=== PATIENT | female | born 1985 | race Caucasian/White ===

== ENCOUNTER 2019-01-10 20:05 | Emergency (ER) | payer SELFPAY ==
--- NOTE | 2019-01-10 21:02 | ER Document Report ---
ED Medical Screen (RME) - General Chief Complaint: Probable Seizure Stated Complaint: SYNCOPAL EPISODE Time Seen by Provider: 01/10/19 21:01 Notes: 33-year-old female to emergency department chief complaint of altered mental status. Patient states that she has these "spells". Has some sort of heart disease. Has an implanted device that supposed to record events but she has not seen a replenishment specialist in several years. No fever, chills, sweats. Complaining of neck and back pain. She does not know what happened. I have greeted and performed a rapid initial assessment of this patient. A comprehensive ED assessment and evaluation of the patient, analysis of test results and completion of the medical decision making process will be conducted by additional ED providers. TRAVEL OUTSIDE OF THE [place] IN LAST 30 DAYS: No - Related Data Allergies/Adverse Reactions: No Known Drug Allergies Allergy (Verified 01/10/19 20:29) Past Medical History - Social History Frequency of alcohol use: Rare Drug Abuse: None Renal/ Medical History: Denies: Hx Peritoneal Dialysis Physical Exam - Vital signs Vitals: Resp 17 01/10/19 20:07 Course - Vital Signs Vital signs: Temp Pulse Resp BP Pulse Ox 98.9 F 23 H 125/74 99 01/10/19 20:08 01/10/19 20:08 01/10/19 20:08 01/10/19 20:08
[2019-01-10 21:25] LABS: APPEARANCE,URINE SLIGHTLY-CLOUDY; BILIRUBIN,URINE NEGATIVE (NEGATIVE); COLOR,URINE YELLOW; GLUCOSE, URINE NEGATIVE (NEGATIVE); KETONES,URINE NEGATIVE (NEGATIVE); LEUKOCYTE ESTERASE,URINE MODERATE (NEGATIVE); NITRITE,URINE POSITIVE (NEGATIVE); PROTEIN,URINE NEGATIVE (NEGATIVE); URINE SPECIFIC GRAVITY 1.004; UROBILINOGEN,URINE NEGATIVE mg/dL (<2.0)
[2019-01-10 21:26] LABS: ABSOLUTE BASOPHILS # (AUTO) 0.1 10^3/uL (0.0-0.2); ABSOLUTE EOSINOPHILS # (AUTO) 0.2 10^3/uL (0.0-0.6); ABSOLUTE LYMPHOCYTES (AUTO) 3.8 10^3/uL (0.5-4.7); ABSOLUTE MONOCYTES (AUTO) 0.5 10^3/uL (0.1-1.4); ABSOLUTE NEUT (AUTO) 5.7 10^3/uL (1.7-8.2); BASOPHILS % (AUTO) 0.8 % (0-2); EOSINOPHILS % (AUTO) 2.4 % (0-6); HEMATOCRIT 37.5 % (36.0-47.0); HEMOGLOBIN 12.9 g/dL (12.0-15.5); LYMPHOCYTES % (AUTO) 36.5 % (13-45); MEAN CORPUSCULAR HEMOGLOBIN 31.4 pg (27.0-33.4); MEAN CORPUSCULAR HGB CONC 34.5 g/dL (32.0-36.0); MEAN CORPUSCULAR VOLUME 91 fl (80-97); MONOCYTES % (AUTO) 5.2 % (3-13); PLATELET COUNT 316 10^3/uL (150-450); RED BLOOD COUNT 4.11 10^6/uL (3.72-5.28); RED CELL DISTRIBUTION WIDTH 14.4 % (11.5-14.0); SEGMENTED NEUTROPHILS % (AUTO) 55.1 % (42-78); TOTAL CELLS COUNTED % (AUTO) 100 %; WHITE BLOOD COUNT 10.3 10^3/uL (4.0-10.5)
[2019-01-10 21:38] LABS: URINE AMPHETAMINES SCREEN NEGATIVE; URINE BARBITURATES SCREEN NEGATIVE; URINE BENZODIAZEPINES SCREEN NEGATIVE; URINE COCAINE SCREEN NEGATIVE; URINE MARIJUANA (THC) SCREEN UNCONFIRMED POSITIVE; URINE METHADONE SCREEN NEGATIVE; URINE PHENCYCLIDINE SCREEN NEGATIVE
[2019-01-10 21:52] LABS: ALANINE AMINOTRANSFERASE 18 U/L (9-52); ALBUMIN 4.2 g/dL (3.5-5.0); ALKALINE PHOSPHATASE 73 U/L (38-126); ANION GAP 12 (5-19); ASPARTATE AMINO TRANSFERASE 13 U/L (14-36); BILIRUBIN,DIRECT 0.3 mg/dL (0.0-0.4); BILIRUBIN,TOTAL 0.5 mg/dL (0.2-1.3); BLOOD UREA NITROGEN 10 mg/dL (7-20); CALCIUM 9.5 mg/dL (8.4-10.2); CARBON DIOXIDE 22 mmol/L (22-30); CHLORIDE 105 mmol/L (98-107); CREATINE KINASE 67 U/L (30-135); GLUCOSE 85 mg/dL (75-110); SODIUM 139.4 mmol/L (137-145); TOTAL PROTEIN 6.7 g/dL (6.3-8.2)
[2019-01-10 22:04] LABS: CREATINE KINASE MB 0.29 ng/mL (<4.55); TROPONIN I < 0.012 ng/mL
[2019-01-10] MEDS ORDERED: ACETAMINOPHEN 325 MG TABLET PO ONE (23:56)
--- NOTE | 2019-01-11 04:01 | RADIOLOGY REPORT (SQ) ---
CLINICAL HISTORY: seizure, anisocoria COMPARISON: None. TECHNIQUE: CT HEAD WITHOUT IV CONTRAST on 01/11/2019 2:07 AM CDT This exam was performed according to our departmental dose-optimization program, which includes automated exposure control, adjustment of the mA and/or kV according to patient size and/or use of iterative reconstruction technique. FINDINGS: There is no acute hemorrhage, mass effect or midline shift. Reid-white differentiation is preserved. There is no hydrocephalus. There is no significant volume loss for age. The calvarium is intact. Orbits and globes are unremarkable. The paranasal sinuses are clear. Mastoid air cells are clear. IMPRESSION: No acute intracranial findings.
[2019-01-11] MEDS ORDERED: LEVETIRACETAM 500 MG TABLET PO ONE (05:26)
[2019-01-11] MEDS ORDERED: CEPHALEXIN 500 MG CAPSULE PO ONE (05:26)
--- NOTE | 2019-01-11 06:03 | ER Document Report ---
ED General - General Chief Complaint: Probable Seizure Stated Complaint: SYNCOPAL EPISODE Time Seen by Provider: 01/10/19 21:01 TRAVEL OUTSIDE OF THE [place] IN LAST 30 DAYS: No - HPI Notes: Patient brought to the emergency department for evaluation of possible seizure. Evidently this is not first time this is happened. She has a history of these episodes. Patient's brother describes opisthotnus. She does have a postictal period afterwards. He does not report biting her tongue. No incontinence. She has had these episodes multiple times. She does not drive. She was told at one point they might be cardiac but she is unsure. She is not seeing neurology. She does not currently have insurance. At this time she denies any pain. No visual changes. Seeing, speaking, swallowing without difficulty. Moving arms and legs with no problems. - Related Data Allergies/Adverse Reactions: No Known Drug Allergies Allergy (Verified 01/10/19 20:29) Past Medical History - General Information source: Patient, Relative - Social History Smoking Status: Current Every Day Smoker Frequency of alcohol use: Rare Drug Abuse: None Family History: Reviewed & Not Pertinent Patient has suicidal ideation: No Patient has homicidal ideation: No Neurological Medical History: Reports: Hx Seizures Renal/ Medical History: Denies: Hx Peritoneal Dialysis Review of Systems - Review of Systems Constitutional: No symptoms reported EENT: No symptoms reported Cardiovascular: No symptoms reported Respiratory: No symptoms reported Gastrointestinal: No symptoms reported Genitourinary: No symptoms reported Musculoskeletal: No symptoms reported Skin: No symptoms reported Neurological/Psychological: No symptoms reported Physical Exam - Vital signs Vitals: Resp 17 01/10/19 20:07 - Notes Notes: Vital signs reviewed, please refer to chart. Patient is normocephalic, atraumatic. Right pupil is 6 mm round, reactive. Left pupil is 4 mm, round, reactive. Neck is supple without meningismus. Heart is regular rate and rhythm. Lungs are clear to auscultation bilaterally. Abdomen is soft, nontender, normoactive bowel sounds throughout. Extremities without cyanosis, clubbing, edema. Peripheral pulses are equal. Skin is warm and dry. Patient is awake, alert, and oriented x3. With the exception of anisocoria, cranial nerves II through XII are grossly intact without focal neurological deficits. Strength is plus 5 out of 5 bilateral upper and lower extremities. Reflexes are symmetrical, sensation is intact. Intact [id number], rapid alternating movements, heel to vargas. Course - Re-evaluation Re-evalutation: 01/11/19 06:01 Patient presented to the emergency department for evaluation. She was initially evaluated via triage and had laboratory investigations ordered. On my initial exam, I did note that anisocoria. The patient denies that this is ever been present. It was not noted on earlier exams. CT scan of the head was ordered and found to be unremarkable. I then consulted with Dr. Borrego, neurologist at [facility]. I reiterated with him that there is no ptosis, no diplopia, no other acute complaints. CT scan was unremarkable. Patient's ptosis remained, but she remained asymptomatic with it. He does recommend treatment with Keppra. Again the patient does not drive. I explained to her the importance of continuing not to drive. I will start her on Keppra. I will refer her on to [facility]. Given her medical issues it is highly important she have a primary care provider, she voiced understanding to this. She was given a dose of Keflex for UTI, found with a nitrate positive urine. Otherwise she is stable and ready for discharge. She is to return to the ED with worsening or new concerning symptoms of any sort. 01/11/19 06:05 - Vital Signs Vital signs: Temp Pulse Resp BP Pulse Ox 98.7 F 78 20 120/70 98 01/11/19 06:22 01/11/19 06:22 01/11/19 06:22 01/11/19 06:22 01/11/19 06:22 - Laboratory Result Diagrams: 01/10/19 20:22 01/10/19 20:22 Laboratory results interpreted by me: 01/10/19 01/10/19 01/10/19 20:22 20:22 21:10 RDW 14.4 H AST 13 L Urine Nitrite POSITIVE H Ur Leukocyte Esterase MODERATE H - EKG Interpretation by Me Additional EKG results interpreted by me: 01/11/19 06:13 NSR at 84 bpm. Normal axis and intervals, no acute ST changes concerning for ischemia or infarct. Discharge - Discharge Clinical Impression: UTI (urinary tract infection), Seizure, Anisocoria Condition: Stable Disposition: HOME, SELF-CARE Instructions: Cephalexin ([facility]), New Seizure ([facility]), Urinary Tract Infection ([facility]) Additional Instructions: Take Keppra and Keflex as directed. It is highly important you follow-up with primary care. Absolutely no driving. Return to the emergency department with worsening or new concerning symptoms of any sort. Prescriptions: Cephalexin Monohydrate [Keflex 500 mg Capsule] 500 mg PO QID #20 capsule Levetiracetam [Keppra 500 mg Tablet] 500 mg PO Q12 #60 tablet
[2019-01-11 06:23] VITALS: BP 120/70
--- NOTE | 2019-01-11 08:06 | EKG REPORT ---
SEVERITY:- NORMAL ECG - SINUS RHYTHM : Confirmed by: Kobe Tobar MD 11-Jan-2019 08:05:17
== END 2019-01-11 06:25 | disposition home or self-care (01) ==
LOC: ER 20:05
DX: R56.9 Unspecified convulsions (principal); H57.02 Anisocoria; N39.0 Urinary tract infection, site not specified; F17.200 Nicotine dependence, unspecified, uncomplicated
CPT/HCPCS: 36415; 70450; 80053; 80307; 81001; 81025; 82550; 82553; 84484; 85025; 93005; 93010; 99284

== ENCOUNTER 2019-02-15 17:38 | Emergency (ER) | payer SELFPAY ==
[2019-02-15] MEDS ORDERED: LEVETIRACETAM 1000 MG/NACL-ISO 1,000 MG/100 ML RTUPB IV ONE (17:53)
--- NOTE | 2019-02-15 17:54 | ER Document Report ---
ED General - General Stated Complaint: POSSIBLE SEZIURE Time Seen by Provider: 02/15/19 17:52 Primary Care Provider: IZABELLA BERNAL MD [EMERITUS] - Follow up in 3-5 days OSMAN HUTSON MD [NO LOCAL MD] - Follow up in 3-5 days Notes: Patient is a 33 year old female that presents to the emergency department for chief complaint of seizure. Patient has history of seizure disorder, she was recently started on Keppra about 2 months ago because she was having increased number of seizures, she takes 500 mg twice daily, she claims she has not missed any doses. He does not have a neurologist yet in the area. She states this seizure occurred while she was in the car, her brother was with her, she was in the passenger seat, lasted less than 5 minutes, and stopped on its own. She is complained of a mild headache at this time, did not bite her tongue, or urinate on herself. She has a bit of a backache as well, she currently rates her pain as a 3 out of 10. She denies any other complaints at this time, denies any recent fevers, chills, night sweats, numbness, weakness or tingling in extremities. Past Medical History: Seizure disorder, paroxysmal atrial fibrillation Past Surgical History: Loop recorder placement Social History: Admits to smoking cigarettes, denies alcohol or drug use. Family History: Reviewed and noncontributory for presenting illness Allergies: Reviewed, see documented allergy list. REVIEW OF SYSTEMS: Other than noted above, the 12 point review of systems was reviewed with the patient and were negative, all pertinent findings are included in the HPI. PHYSICAL EXAMINATION: Vital signs reviewed, nursing noted reviewed. GENERAL: Well-appearing, well-nourished and in no acute distress. HEAD: Atraumatic, normocephalic. EYES: Eyes appear normal, extraocular movements intact, sclera anicteric, co njunctiva are normal. ENT: nares patent, oropharynx clear without exudates. Moist mucous membranes. NECK: Normal range of motion, supple without lymphadenopathy LUNGS: Breath sounds clear to auscultation bilaterally and equal. No wheezes rales or rhonchi. HEART: Regular rate and rhythm without murmurs ABDOMEN: Soft, nontender, normoactive bowel sounds. No rebound, guarding, or rigidity. No masses appreciated. EXTREMITIES: Nontender, good range of motion, no pitting or edema. NEUROLOGICAL: No focal neurological deficits. Moves all extremities spontaneously Motor and sensory grossly intact on exam. PSYCH: Normal mood, normal affect. SKIN: Warm, Dry, normal turgor, no rashes or lesions noted on exposed skin TRAVEL OUTSIDE OF THE [place] IN LAST 30 DAYS: No - Related Data Allergies/Adverse Reactions: No Known Drug Allergies Allergy (Verified 01/10/19 20:29) Past Medical History - Social History Smoking Status: Current Every Day Smoker Family History: Reviewed & Not Pertinent Neurological Medical History: Reports: Hx Seizures Renal/ Medical History: Denies: Hx Peritoneal Dialysis Physical Exam - Vital signs Vitals: Temp Pulse Resp BP Pulse Ox 98.3 F 81 18 103/70 99 02/15/19 18:19 02/15/19 18:19 02/15/19 18:19 02/15/19 18:19 02/15/19 18:19 Course - Re-evaluation Re-evalutation: Patient seen and examined vital signs reviewed. Patient was evaluated and treated as appropriate for the patient's presenting symptoms and complaint, with consideration of any critical or life threatening conditions that may be associated with their obtained history and exam as noted above. Patient was treated with IV Keppra 1 g The patient was re-evaluated and was stable and improved Evaluation was most consistent with seizure disorder, with breakthrough seizure, advised continuing her current dosing of Keppra, and following up with a neurologist, she is given to to follow-up with. Patient was agreeable to this plan of care and discharged home. Plan of care was discussed with the patient at this point, after careful consideration I feel that that patient can be discharged from the emergency department, the patient was educated treatments and reasons to return to the emergency department based on their presumed diagnosis as noted above, they were advised to followup with a primary care physician in 2-3 days. Patient was agreeable to plan of care. *Note is created using voice recognition software and may contain spelling, syntax or grammatical errors. - Vital Signs Vital signs: Temp Pulse Resp BP Pulse Ox 98.3 F 91 18 103/70 100 19 18:19 0419 19:37 02/15/19 19:37 02/15/19 19:37 02/15/19 19:37 - EKG Interpretation by Me Additional EKG results interpreted by me: EKG demonstrates sinus rhythm with a ventricular rate of 82 bpm, normal axis, normal intervals, no evidence of acute ischemia on this EKG, this is compared to prior EKG from 01/10/2019, without significant change. Discharge - Discharge Clinical Impression: Seizure Condition: Stable Disposition: HOME, SELF-CARE Instructions: Seizure, Known Epileptic ([facility]) Referrals: IZABELLA BERNAL MD [EMERITUS] - Follow up in 3-5 days OSMAN HUTSON MD [NO LOCAL MD] - Follow up in 3-5 days
[2019-02-15] MEDS ORDERED: KETOROLAC TROMETHAMINE INJ/PF 30 MG/1 ML SDV IV ONE (18:01)
[2019-02-15 18:21] VITALS: BP 103/70
--- NOTE | 2019-02-15 22:42 | EKG REPORT ---
SEVERITY:- NORMAL ECG - SINUS RHYTHM : Confirmed by: Jeannie Bhatia MD 15-Feb-2019 22:41:40
== END 2019-02-15 19:37 | disposition home or self-care (01) ==
LOC: ER 17:38
DX: G40.909 Epilepsy, unspecified, not intractable, without status epilepticus (principal); Z79.899 Other long term (current) drug therapy; M54.9 Dorsalgia, unspecified; F17.210 Nicotine dependence, cigarettes, uncomplicated
CPT/HCPCS: 93005; 99284; 96375; 96365; 93010; J1885; J1953

== ENCOUNTER 2019-03-10 15:40 | Emergency (ER) | payer SELFPAY ==
[2019-03-10] MEDS ORDERED: LORAZEPAM INJ 2 MG/1 ML VIAL ONE ×2 (15:50→15:58)
[2019-03-10] MEDS ORDERED: PHENYTOIN SODIUM INJ/PF 250 MG/5 ML SDV IV ONE (16:05)
[2019-03-10] MEDS ORDERED: DIAZEPAM INJ 10 MG/2 ML DISP.SYRIN IV ONE ×6 (16:06→21:08)
[2019-03-10] MEDS: DIAZEPAM INJ 10 MG/2 ML DISP.SYRIN ONE ×2 (16:08→16:31)
[2019-03-10 16:32] LABS: ABSOLUTE EOSINOPHILS # (AUTO) 0.3 10^3/uL (0.0-0.6); ABSOLUTE MONOCYTES (AUTO) 0.4 10^3/uL (0.1-1.4); ABSOLUTE NEUT (AUTO) 4.6 10^3/uL (1.7-8.2); BASOPHILS % (AUTO) 0.4 % (0-2); EOSINOPHILS % (AUTO) 3.1 % (0-6); HEMATOCRIT 41.7 % (36.0-47.0); LYMPHOCYTES % (AUTO) 42.4 % (13-45); MEAN CORPUSCULAR HEMOGLOBIN 30.8 pg (27.0-33.4); MEAN CORPUSCULAR HGB CONC 33.6 g/dL (32.0-36.0); MEAN CORPUSCULAR VOLUME 92 fl (80-97); MONOCYTES % (AUTO) 4.7 % (3-13); PLATELET COUNT 313 10^3/uL (150-450); RED BLOOD COUNT 4.55 10^6/uL (3.72-5.28); RED CELL DISTRIBUTION WIDTH 13.1 % (11.5-14.0); SEGMENTED NEUTROPHILS % (AUTO) 49.4 % (42-78); TOTAL CELLS COUNTED % (AUTO) 100 %; WHITE BLOOD COUNT 9.3 10^3/uL (4.0-10.5)
[2019-03-10 16:52] LABS: ALANINE AMINOTRANSFERASE 29 U/L (9-52); ALBUMIN 4.7 g/dL (3.5-5.0); ALKALINE PHOSPHATASE 72 U/L (38-126); ANION GAP 14 (5-19); ASPARTATE AMINO TRANSFERASE 25 U/L (14-36); BILIRUBIN,DIRECT 0.4 mg/dL (0.0-0.4); BILIRUBIN,TOTAL 0.7 mg/dL (0.2-1.3); BLOOD UREA NITROGEN 8 mg/dL (7-20); CALCIUM 9.9 mg/dL (8.4-10.2); CARBON DIOXIDE 21 mmol/L (22-30); CHLORIDE 107 mmol/L (98-107); GLUCOSE 110 mg/dL (75-110); POTASSIUM 4.3 mmol/L (3.6-5.0); TOTAL PROTEIN 7.6 g/dL (6.3-8.2)
[2019-03-10] MEDS ORDERED: DIAZEPAM INJ 10 MG/2 ML DISP.SYRIN ONE ×2 (17:59→18:08)
[2019-03-10 18:24] LABS: APPEARANCE,URINE CLEAR; BILIRUBIN,URINE NEGATIVE (NEGATIVE); COLOR,URINE YELLOW; GLUCOSE, URINE NEGATIVE (NEGATIVE); KETONES,URINE NEGATIVE (NEGATIVE); LEUKOCYTE ESTERASE,URINE NEGATIVE (NEGATIVE); NITRITE,URINE NEGATIVE (NEGATIVE); PROTEIN,URINE NEGATIVE (NEGATIVE); URINE SPECIFIC GRAVITY 1.012; UROBILINOGEN,URINE NEGATIVE mg/dL (<2.0)
[2019-03-10 18:41] LABS: URINE AMPHETAMINES SCREEN NEGATIVE; URINE BARBITURATES SCREEN NEGATIVE; URINE BENZODIAZEPINES SCREEN UNCONFIRMED POSITIVE; URINE COCAINE SCREEN NEGATIVE; URINE MARIJUANA (THC) SCREEN UNCONFIRMED POSITIVE; URINE METHADONE SCREEN NEGATIVE; URINE PHENCYCLIDINE SCREEN NEGATIVE
[2019-03-10] MEDS ORDERED: MIDAZOLAM 2 MG/2 ML INJ ONE (19:12)
[2019-03-10] MEDS ORDERED: MIDAZOLAM 2 MG/2 ML INJ IV ONE (19:16)
--- NOTE | 2019-03-10 19:48 | ER Document Report ---
ED General - General Chief Complaint: Seizure Stated Complaint: POSSIBLE SEIZURE Time Seen by Provider: 03/10/19 15:50 TRAVEL OUTSIDE OF THE [place] IN LAST 30 DAYS: No - HPI Notes: Patient is a 33-year-old female who presents to the emergency department for evaluation after possible seizure. She has never officially been diagnosed with seizure disorder. Actually saw this patient back in December. At that time she was diagnosed with possible seizure. Her brother described opisthotonic movements in a post-ictal state. I did perform an MRI at that point because she had anisocoria. No significant abnormality was found. Evidently the patient had continued the Keppra, as recommended by myself as well as a neurology consult from [facility]. According to brother she was taking her medications as prescribed. She had another episode while in the field. She was loaded with 500 mill grams of Keppra and route here. Upon arrival, she was having another opisthotonic, nonepileptic appearing event. She was medicated here with benzodiazepines. I loaded her with Dilantin, and continue to follow. According to family she is had no further head injuries. She is no history of drug abuse. - Related Data Allergies/Adverse Reactions: No Known Drug Allergies Allergy (Verified 01/10/19 20:29) Past Medical History - General Information source: Parent, Relative - Social History Smoking Status: Never Smoker Chew tobacco use (# tins/day): No Frequency of alcohol use: None Drug Abuse: Marijuana Family History: Reviewed & Not Pertinent Patient has suicidal ideation: No Patient has homicidal ideation: No - Past Medical History Cardiac Medical History: Reports: Hx Atrial Fibrillation Neurological Medical History: Reports: Hx Seizures Renal/ Medical History: Denies: Hx Peritoneal Dialysis Review of Systems - Review of Systems -: Yes ROS unobtainable due to patient's medical condition Physical Exam - Vital signs Vitals: Temp Resp Pulse Ox 98.8 F 23 H 100 03/10/19 15:56 03/10/19 15:56 03/10/19 15:56 - Notes Notes: Patient having intermittent opisthotonic episodes. Upon eye opening she does have anisocoria, stable from prior exam, right greater than left, but each pupil is reactive. She quickly averts her eyes up and to the left. Head is normocephalic and appears atraumatic. Oral mucosa is moist. Heart is regular rate and rhythm, lungs are clear to all station bilaterally. Abdomen is soft, nontender, normoactive bowel sounds. She has normoactive reflexes, moves all 4 extremities spontaneously. After these events, the patient is able to follow commands. She has been nonverbal throughout the course of her stay, but is able to communicate with blinking, once for yes, twice for no. No gross facial asymmetry. Course - Re-evaluation Re-evalutation: 03/10/19 19:46 Patient presented to the emergency department for evaluation. Is that these are in fact nonepileptic events. She was medicated multiple times. With redirectio n and calming, she was able to come out of some of these. Again she was never verbal here in the department. She is clearing her secretions without apparent difficulty. She has been maintaining her own airway despite medication. Again she had been loaded with Keppra, Keppra level pending. Laboratory investigations were unremarkable with exception of marijuana and benzodiazepines in her urine. Her urine was obtained after receiving benzodiazepines here in the emergency department. She was given Dilantin IV. I spoke with Dr. Aguilar, neurologist at [facility], who accepted the patient for continuous EEG monitoring. Bed is pending at this time. - Vital Signs Vital signs: Temp Pulse Resp BP Pulse Ox 98.8 F 23 H 101/71 100 03/10/19 15:56 03/10/19 20:01 03/10/19 20:00 03/10/19 20:01 - Laboratory Result Diagrams: 03/10/19 15:53 03/10/19 15:13 Laboratory results interpreted by me: 03/10/19 15:13 Carbon Dioxide 21 L Discharge - Discharge Clinical Impression: Seizure, suspected nonepileptic Condition: Stable Disposition: [facility] Admitting Provider: Dr. Aguilar
[2019-03-11] MEDS ORDERED: DIAZEPAM INJ 10 MG/2 ML DISP.SYRIN ONE (01:30)
[2019-03-11] MEDS ORDERED: DIAZEPAM INJ 10 MG/2 ML DISP.SYRIN IV ONE (01:32)
[2019-03-11] MEDS ORDERED: NORMAL SALINE 1000 ML 1,000 ML IV ONE (04:09)
[2019-03-11] MEDS ORDERED: NICOTINE 14 MG/24 HR PATCH.TD24 TD ONE ×2 (07:30→10:30)
--- NOTE | 2019-03-11 07:53 | ER Document Report ---
Doctor's Note Notes: 03/11/19 07:51 I was asked by nursing staff to evaluate the patient for concern of seizure activity. When I entered the room she was arched backwards I was able to and laying slightly on her left side. There was no tonic-clonic movement. When I said patient's name she turned her eyes towards me. She will not speak but is nodding her head to show understanding when I introduced myself. When nursing staff who was on the other side of the bed that her name she looked over to the other side of the bed. I do not appreciate acute seizure activity requiring immediate treatment at this point. Patient will continue to be monitored. Currently awaiting placement at outside hospital. She is hemodynamically stable at this point for transfer.
[2019-03-11 12:30] VITALS: BP 107/63
== END 2019-03-11 14:55 | disposition short-term general hospital (02) ==
LOC: ER 15:40
DX: R56.9 Unspecified convulsions (principal)
CPT/HCPCS: 36415; 80177; 82962; 84703; 85025; 80053; 81001; 80307; J2250; J3360 ×2; J2060; J1165; J7030

== ENCOUNTER 2019-05-22 07:53 | Emergency (ER) | payer OTHER ==
[2019-05-22] MEDS ORDERED: DIPH/PERTUSS(ACELL)/TETANUS VAC/PF 0.5 ML SYR (>=10YO) IM ONE (08:06)
[2019-05-22] MEDS ORDERED: LIDOCAINE 1% INJ-PF (10 MG/ML) 30 ML SDV INJ ONE (08:06)
[2019-05-22] MEDS ORDERED: LIDOCAINE 1.5%/EPINEPHRINE INJ-PF 30 ML SDV INJ ONE (08:06)
[2019-05-22] MEDS ORDERED: LIDOCAINE 4%/TETRACAINE 0.5%/EPI 0.18% 5 ML TOPICAL SOLN TOP ONE (08:07)
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
[2019-05-22] MEDS ORDERED: IBUPROFEN 600 MG TABLET PO ONE (08:42)
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
[2019-05-22] MEDS ORDERED: OXYCODONE-ACETAMINOPHEN 5-325 MG TABLET PO ONE (09:31)
[2019-05-22 10:11] VITALS: BP 122/81
== END 2019-05-22 10:11 | disposition home or self-care (01) ==
LOC: ER 07:53
DX: S02.40EA Zygomatic fracture, right side, initial encounter for closed fracture (principal); S02.31XA Fracture of orbital floor, right side, initial encounter for closed fracture; S02.40CA Maxillary fracture, right side, initial encounter for closed fracture; S01.421A Laceration with foreign body of right cheek and temporomandibular area, initial encounter; M54.2 Cervicalgia; R51 Headache; V44.6XXA Car passenger injured in collision with heavy transport vehicle or bus in traffic accident, initial encounter; Z23 Encounter for immunization
CPT/HCPCS: 99284; 90471; 70450; 70486; 72125; 90715; 12052; J3490 ×2

== ENCOUNTER 2019-10-22 12:25 | Emergency (ER) | payer OTHER ==
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
[2019-10-22 13:28] LABS: ABSOLUTE BASOPHILS # (AUTO) 0.1 10^3/uL (0.0-0.2); ABSOLUTE EOSINOPHILS # (AUTO) 0.6 10^3/uL (0.0-0.6); ABSOLUTE LYMPHOCYTES (AUTO) 2.9 10^3/uL (0.5-4.7); ABSOLUTE MONOCYTES (AUTO) 0.5 10^3/uL (0.1-1.4); ABSOLUTE NEUT (AUTO) 3.8 10^3/uL (1.7-8.2); BASOPHILS % (AUTO) 0.8 % (0-2); EOSINOPHILS % (AUTO) 7.7 % (0-6); HEMATOCRIT 41.5 % (36.0-47.0); HEMOGLOBIN 14.2 g/dL (12.0-15.5); LYMPHOCYTES % (AUTO) 36.9 % (13-45); MEAN CORPUSCULAR HEMOGLOBIN 31.1 pg (27.0-33.4); MEAN CORPUSCULAR HGB CONC 34.1 g/dL (32.0-36.0); MEAN CORPUSCULAR VOLUME 91 fl (80-97); MONOCYTES % (AUTO) 6.3 % (3-13); PLATELET COUNT 265 10^3/uL (150-450); RED BLOOD COUNT 4.56 10^6/uL (3.72-5.28); RED CELL DISTRIBUTION WIDTH 12.9 % (11.5-14.0); SEGMENTED NEUTROPHILS % (AUTO) 48.3 % (42-78); TOTAL CELLS COUNTED % (AUTO) 100 %; WHITE BLOOD COUNT 7.9 10^3/uL (4.0-10.5)
[2019-10-22 13:35] LABS: INTERNATIONAL RATION (INR) 0.91; PARTIAL THROMBOPLASTIN TIME 28.4 SEC (23.5-35.8); PROTHROMBIN TIME 12.2 SEC (11.4-15.4)
[2019-10-22 13:47] LABS: ALBUMIN 4.4 g/dL (3.5-5.0); ALKALINE PHOSPHATASE 79 U/L (38-126); ANION GAP 12 (5-19); ASPARTATE AMINO TRANSFERASE 40 U/L (14-36); BILIRUBIN,DIRECT 0.1 mg/dL (0.0-0.4); BILIRUBIN,TOTAL 0.5 mg/dL (0.2-1.3); BLOOD UREA NITROGEN 9 mg/dL (7-20); CALCIUM 9.9 mg/dL (8.4-10.2); CARBON DIOXIDE 26 mmol/L (22-30); CHLORIDE 103 mmol/L (98-107); GLUCOSE 88 mg/dL (75-110); POTASSIUM 4.2 mmol/L (3.6-5.0); TOTAL PROTEIN 7.3 g/dL (6.3-8.2)
[2019-10-22 14:19] VITALS: BP 106/73
== END 2019-10-22 14:19 | disposition home or self-care (01) ==
LOC: ER 12:25
DX: L30.9 Dermatitis, unspecified (principal); L85.8 Other specified epidermal thickening; R21 Rash and other nonspecific skin eruption; F17.200 Nicotine dependence, unspecified, uncomplicated
CPT/HCPCS: 36415; 80053; 85025; 85610; 85730; 99283

== ENCOUNTER 2019-10-28 16:14 | Emergency (ER) | payer OTHER ==
[2019-10-28] MEDS ORDERED: LORAZEPAM INJ 2 MG/1 ML VIAL IV ONE (16:37)
--- NOTE | 2019-10-28 16:42 | ER Document Report ---
ED General - General Chief Complaint: Probable Seizure Stated Complaint: POSSIBLE SEIZURES Time Seen by Provider: 10/28/19 16:36 Mode of Arrival: Medic Information source: Patient Notes: 33-year-old female patient brought to the emergency department via EMS for possible seizure-like activity. [place] and bystanders told EMS that she was having seizures. She did not have any postictal phase and did not have any incontinence. Patient was seen here in [facility] emergency department for very similar presentation a few months ago, she was subsequently transferred to [facility] where she underwent testing. Upon reviewing her pharmacy record she has not taken any medications for seizures. TRAVEL OUTSIDE OF THE [place] IN LAST 30 DAYS: No - Related Data Allergies/Adverse Reactions: No Known Drug Allergies Allergy (Verified 10/22/19 12:43) Home Medications: zoloft. xanax Past Medical History - Social History Smoking Status: Unknown if Ever Smoked Frequency of alcohol use: None Drug Abuse: None Family History: Reviewed & Not Pertinent Patient has suicidal ideation: No Patient has homicidal ideation: No - Past Medical History Cardiac Medical History: Reports: Hx Atrial Fibrillation Neurological Medical History: Reports: Hx Seizures - Due to stress Renal/ Medical History: Denies: Hx Peritoneal Dialysis Past Surgical History: Reports: Other - Facial reconstructive surgery Course - Laboratory Result Diagrams: 10/28/19 16:15 10/28/19 16:15
[2019-10-28 16:49] LABS: ABSOLUTE LYMPHOCYTES (AUTO) 1.3 10^3/uL (0.5-4.7); ABSOLUTE MONOCYTES (AUTO) 0.3 10^3/uL (0.1-1.4); BASOPHILS % (AUTO) 0.1 % (0-2); HEMATOCRIT 38.8 % (36.0-47.0); HEMOGLOBIN 13.3 g/dL (12.0-15.5); LYMPHOCYTES % (AUTO) 8.3 % (13-45); MEAN CORPUSCULAR HEMOGLOBIN 31.2 pg (27.0-33.4); MEAN CORPUSCULAR HGB CONC 34.2 g/dL (32.0-36.0); MEAN CORPUSCULAR VOLUME 91 fl (80-97); MONOCYTES % (AUTO) 2.2 % (3-13); PLATELET COUNT 284 10^3/uL (150-450); RED BLOOD COUNT 4.25 10^6/uL (3.72-5.28); SEGMENTED NEUTROPHILS % (AUTO) 89.4 % (42-78); TOTAL CELLS COUNTED % (AUTO) 100 %; WHITE BLOOD COUNT 15.7 10^3/uL (4.0-10.5)
--- NOTE | 2019-10-28 16:49 | ER Document Report ---
ED Medical Screen (RME) - General Chief Complaint: Probable Seizure Stated Complaint: POSSIBLE SEIZURES Time Seen by Provider: 10/28/19 16:36 Mode of Arrival: Medic Information source: Emergency Med Personnel Notes: 33-year-old female patient brought to the emergency department via EMS for pos sible seizure-like activity. Patient was [place] and bystanders told EMS that she was having seizures. She did not have any postictal phase and did not have any incontinence. Patient was seen here in this emergency department for very similar presentation a few months ago, she was subsequently transferred to [facility] where she underwent testing. Upon reviewing her pharmacy record she has not taken any medications for seizures. I was called to patient's room as patient had not been triaged by a provider yet and patient was having seizure-like activity. She did not had any incontinence, she was having some stiffening movements but no shaking. She did become tachycardic but otherwise vitals remained normal. This episode lasted for approximately 2 minutes and then she returned to baseline. Orders initiated at this time. Order was placed for 2 mg of Ativan to be given IV however by the time the nursing staff was able to obtain this medication the patient stopped having the seizure-like activity. Medication was not given. I have greeted and performed a rapid initial assessment of this patient. A comprehensive ED assessment and evaluation of the patient, analysis of test results and completion of the medical decision making process will be conducted by additional ED providers. I have specifically instructed the patient or family members with the patient to immediately return to any nursing staff should anything change in the patient's condition or with their chief complaint. TRAVEL OUTSIDE OF THE [place] IN LAST 30 DAYS: No - Related Data Allergies/Adverse Reactions: No Known Drug Allergies Allergy (Verified 10/22/19 12:43) Home Medications: zoloft. xanax Past Medical History - Social History Frequency of alcohol use: None Drug Abuse: None - Past Medical History Cardiac Medical History: Reports: Hx Atrial Fibrillation Neurological Medical History: Reports: Hx Seizures - Due to stress Renal/ Medical History: Denies: Hx Peritoneal Dialysis Past Surgical History: Reports: Other - Facial reconstructive surgery Course - Laboratory Result Diagrams: 10/28/19 16:15 10/28/19 16:15
[2019-10-28 17:09] LABS: ALBUMIN 3.9 g/dL (3.5-5.0); ALKALINE PHOSPHATASE 70 U/L (38-126); ANION GAP 14 (5-19); ASPARTATE AMINO TRANSFERASE 18 U/L (14-36); BILIRUBIN,DIRECT 0.2 mg/dL (0.0-0.4); BILIRUBIN,TOTAL 0.4 mg/dL (0.2-1.3); BLOOD UREA NITROGEN 9 mg/dL (7-20); CALCIUM 9.3 mg/dL (8.4-10.2); CARBON DIOXIDE 25 mmol/L (22-30); CHLORIDE 100 mmol/L (98-107); GLUCOSE 157 mg/dL (75-110); POTASSIUM 3.7 mmol/L (3.6-5.0); TOTAL PROTEIN 6.7 g/dL (6.3-8.2)
[2019-10-28 17:19] LABS: ALCOHOL < 10 mg/dL (NONE DETECTED)
[2019-10-28 17:53] LABS: APPEARANCE,URINE SLIGHTLY-CLOUDY; BILIRUBIN,URINE NEGATIVE (NEGATIVE); COLOR,URINE YELLOW; GLUCOSE, URINE NEGATIVE (NEGATIVE); KETONES,URINE NEGATIVE (NEGATIVE); LEUKOCYTE ESTERASE,URINE NEGATIVE (NEGATIVE); NITRITE,URINE NEGATIVE (NEGATIVE); PROTEIN,URINE NEGATIVE (NEGATIVE); URINE SPECIFIC GRAVITY 1.008; UROBILINOGEN,URINE NEGATIVE mg/dL (<2.0)
[2019-10-28 18:11] LABS: URINE AMPHETAMINES SCREEN NEGATIVE; URINE BARBITURATES SCREEN NEGATIVE; URINE COCAINE SCREEN NEGATIVE; URINE METHADONE SCREEN NEGATIVE; URINE PHENCYCLIDINE SCREEN NEGATIVE
[2019-10-28 18:12] LABS: URINE BENZODIAZEPINES SCREEN UNCONFIRMED POSITIVE; URINE MARIJUANA (THC) SCREEN UNCONFIRMED POSITIVE
--- NOTE | 2019-10-28 18:51 | ER Document Report ---
ED General - General Chief Complaint: Probable Seizure Stated Complaint: POSSIBLE SEIZURES Time Seen by Provider: 10/28/19 16:36 Primary Care Provider: MAYNOR FRIAS PA-C [Primary Care Provider] - Follow up as needed Mode of Arrival: Medic Notes: 33-year-old female patient brought to the emergency department via EMS for possible seizure-like activity. [place] and bystanders told EMS that she was having seizures. She did not have any postictal phase and did not have any incontinence. Patient was seen here in this emergency department for very similar presentation a few months ago, she was subsequently transferred to [facility] where she underwent testing. Upon reviewing her pharmacy record she has not taken any medications for seizures. I was called to patient's room as patient had not been triaged by a provider yet and patient was having seizure-like activity. She did not had any incontinence, she was having some stiffening movements but no shaking. She did become tachycardic but otherwise vitals remained normal. This episode lasted for approximately 2 minutes and then she returned to baseline. Orders initiated at this time. Order was placed for 2 mg of Ativan to be given IV however by the time the nursing staff was able to obtain this medication the patient stopped having the seizure-like activity. Medication was not given. TRAVEL OUTSIDE OF THE [place] IN LAST 30 DAYS: No - Related Data Allergies/Adverse Reactions: No Known Drug Allergies Allergy (Verified 10/22/19 12:43) Home Medications: zoloft. xanax Past Medical History - General Information source: Emergency Med Personnel - Social History Smoking Status: Never Smoker Frequency of alcohol use: None Drug Abuse: None Family History: Reviewed & Not Pertinent Patient has suicidal ideation: No Patient has homicidal ideation: No - Past Medical History Cardiac Medical History: Reports: Hx Atrial Fibrillation Neurological Medical History: Reports: Hx Seizures - Due to stress per patient and mother Renal/ Medical History: Denies: Hx Peritoneal Dialysis Past Surgical History: Reports: Other - Facial reconstructive surgery Review of Systems - Review of Systems Constitutional: No symptoms reported EENT: No symptoms reported Cardiovascular: No symptoms reported Respiratory: No symptoms reported Gastrointestinal: No symptoms reported Genitourinary: No symptoms reported Female Genitourinary: No symptoms reported Musculoskeletal: No symptoms reported Skin: No symptoms reported Hematologic/Lymphatic: No symptoms reported Neurological/Psychological: No symptoms reported Physical Exam - Notes Notes: PHYSICAL EXAMINATION: GENERAL: Well-appearing, well-nourished and in no acute distress. HEAD: Atraumatic, normocephalic. EYES: Pupils equal round and reactive to light, extraocular movements intact, conjunctiva are normal. ENT: Nares patent, oropharynx clear without exudates. Moist mucous membranes. NECK: Normal range of motion, supple without lymphadenopathy LUNGS: Breath sounds clear to auscultation bilaterally and equal. No wheezes rales or rhonchi. HEART: Regular rate and rhythm without murmurs ABDOMEN: Soft, nontender, nondistended abdomen. No guarding, no rebound. No masses appreciated. Female : deferred Musculoskeletal: Normal range of motion, no pitting or edema. No cyanosis. NEUROLOGICAL: Cranial nerves grossly intact. Normal speech, normal gait. Normal sensory, motor exams PSYCH: Normal mood, normal affect. SKIN: Warm, Dry, normal turgor, no rashes or lesions noted. Course - Re-evaluation Re-evalutation: Otherwise well-appearing nontoxic-appearing 33-year-old female presenting with possible seizure-like activity. During my initial evaluation patient was having some stiffening, this lasted for 2 minutes and she did not require any intervention for this. She did not bite her tongue, she had no urinary incon tinence, she was not postictal and was completely alert and oriented immediately afterwards. Patient reports she has been seen multiple times for seizure-like activity, she states she had a full work-up done at [facility], she states that they took her off of all seizure medications as they told her that she does not have epileptic seizures however she does have stress-induced seizure-like activity. Patient's mother is at bedside and supports this statement. Currently awaiting lab work-up. Labs are unremarkable today. Patient has continued to not have any seizure-like activity in the emergency department other than the one episode when she first arrived. She states she feels well and would like to go home. We have no criteria to admit her to the hospital. She will be discharged home at this time. I will have her follow-up with her primary care. - Laboratory Result Diagrams: 10/28/19 16:15 10/28/19 16:15 Laboratory results interpreted by me: 10/28/19 10/28/19 16:15 16:15 WBC 15.7 H Lymph % (Auto) 8.3 L [place] % (Auto) 2.2 L Absolute Neuts (auto) 14.0 H Seg Neutrophils % 89.4 H Glucose 157 H Discharge - Discharge Clinical Impression: Seizure-like activity Condition: Stable Disposition: HOME, SELF-CARE Additional Instructions: Your work-up in the emergency department today was unremarkable. All of your labs were normal. It is very important for you to follow-up with your primary care provider so that you can continue your follow-up with neurology. Please return to the emergency department with any new or worsening symptoms.. Referrals: MAYNOR FRIAS PA-C [Primary Care Provider] - Follow up as needed
--- NOTE | 2019-10-28 19:26 | EKG REPORT ---
SEVERITY:- NORMAL ECG - SINUS RHYTHM : Confirmed by: Jeannie Bhatia MD 28-Oct-2019 19:25:56
== END 2019-10-28 19:00 | disposition home or self-care (01) ==
LOC: ER 16:14
DX: R56.9 Unspecified convulsions (principal); I48.91 Unspecified atrial fibrillation
CPT/HCPCS: 36415; 80053; 80307; 81001; 83735; 84703; 85025; 93005; 93010; 99284

== ENCOUNTER 2019-10-31 11:30 | Emergency (ER) | payer OTHER ==
[2019-10-31 12:14] VITALS: BP 137/81
[2019-10-31] MEDS ORDERED: DEXAMETHASONE SOD PHOS INJ 10 MG/1 ML VIAL IM ONE (12:28)
[2019-10-31] MEDS ORDERED: ALBUTEROL SULFATE HFA (90 MCG/PUFF) 8 GM MDI (1 MDI/ER DISP) IH ONE (12:29)
--- NOTE | 2019-10-31 12:34 | ER Document Report ---
HPI - HPI Time Seen by Provider: 10/31/19 12:14 Pain Level: 4 Context: 33-year-old female with history of seizure-like activity presents to the emergency department with 2 days of cough and shortness of breath. Patient states that she had a persistent cough that caused secondary chest wall pain, low-grade fever, denies rhinorrhea. No ear pain or sore throat. No neck stiffness. Cough is intermittently productive that produces "green mucus". No sinus pressure/headache. No nausea or vomiting. No other complaints - RESPIRATORY Respiratory: REPORTS: Coughing - REPRODUCTIVE Reproductive: DENIES: : Past Medical History - Social History Smoking Status: Current Every Day Smoker Frequency of alcohol use: None Drug Abuse: None Family History: Reviewed & Not Pertinent Patient has suicidal ideation: No Patient has homicidal ideation: No - Past Medical History Cardiac Medical History: Reports: Hx Atrial Fibrillation Neurological Medical History: Reports: Hx Seizures - Due to stress per patient and mother Renal/ Medical History: Denies: Hx Peritoneal Dialysis Past Surgical History: Reports: Other - Facial reconstructive surgery Vertical Provider Document - CONSTITUTIONAL Notes: PHYSICAL EXAMINATION: Reviewed vital signs and charting by RN GENERAL: Alert, interacts well. No acute distress. HEAD: Normocephalic, atraumatic. EYES: Pupils equal and round. Extraocular movements intact. ENT: Oral mucosa moist, tongue midline. NECK: Full range of motion. Trachea midline. LUNGS: End expiratory wheezes heard on left side, no rails or rhonchi. No respiratory distress. HEART: Regular rate and rhythm. No murmur ABDOMEN: soft, non-tender. No distention. Bowel sounds present EXTREMITIES: Moves all 4 extremities spontaneously. No edema, No cyanosis. PSYCH: Normal affect, normal mood. SKIN: Warm, dry, normal turgor. No rashes or lesions noted. - INFECTION CONTROL TRAVEL OUTSIDE OF THE [place] IN LAST 30 DAYS: No Course - Re-evaluation Re-evalutation: 10/31/19 12:33 Presentation is most consistent with a viral upper respiratory infection. Patient is overall well appearance, vitals within normal limits, well-hydrated. Patient denies any headache, neck pain, and has no evidence of meningismus on examination. Lungs are clear bilaterally. No evidence of respiratory distress. Based on clinical exam and history, I do not suspect an acute pneumonia, meningitis, strep pharyngitis, or an acute encephalitis. No laboratory or imaging testing is indicated at this time. Will discharge patient with return precautions and followup recommendations. They are in agreement this plan have verbalized understanding return precautions. - Vital Signs Vital signs: Temp Pulse Resp BP Pulse Ox 98.0 F 63 16 137/81 H 100 10/31/19 11:54 10/31/19 11:54 10/31/19 11:54 10/31/19 11:54 10/31/19 11:54 Discharge - Discharge Clinical Impression: Cough, Symptoms of upper respiratory infection (URI) Condition: Good Disposition: HOME, SELF-CARE Additional Instructions: You have been seen and treated in the emergency department for an upper respiratory infection. These are typically caused by viruses and do not respond to antibiotics. Please make sure you using any prescription medications as prescribed. Please also continue to take [id number] Tylenol and Motrin for your generalized body aches, fever. Please stay well-hydrated and get plenty of rest. Please follow-up with your primary care provider in the next 24 to 48 hours. Please return to the emergency room should you have any other concerning symptoms. Referrals: MAYNOR FRIAS PA-C [Primary Care Provider] - Follow up as needed
== END 2019-10-31 12:45 | disposition home or self-care (01) ==
LOC: ER 11:30
DX: R05 Cough (principal); R06.02 Shortness of breath; R07.89 Other chest pain; F17.200 Nicotine dependence, unspecified, uncomplicated; I48.91 Unspecified atrial fibrillation
CPT/HCPCS: 99283; 96374; J1100; J3490

== ENCOUNTER → 2020-04-07 | Outpatient (CLI) | payer OTHER ==
[2020-04-07 10:29] LABS: ABSOLUTE BASOPHILS # (AUTO) 0.1 10^3/uL (0.0-0.2); ABSOLUTE EOSINOPHILS # (AUTO) 0.3 10^3/uL (0.0-0.6); ABSOLUTE LYMPHOCYTES (AUTO) 2.2 10^3/uL (0.5-4.7); ABSOLUTE MONOCYTES (AUTO) 0.5 10^3/uL (0.1-1.4); BASOPHILS % (AUTO) 0.7 % (0-2); EOSINOPHILS % (AUTO) 3.5 % (0-6); HEMATOCRIT 39.2 % (36.0-47.0); HEMOGLOBIN 13.4 g/dL (12.0-15.5); LYMPHOCYTES % (AUTO) 24.4 % (13-45); MEAN CORPUSCULAR HGB CONC 34.1 g/dL (32.0-36.0); MEAN CORPUSCULAR VOLUME 91 fl (80-97); MONOCYTES % (AUTO) 5.6 % (3-13); PLATELET COUNT 243 10^3/uL (150-450); RED BLOOD COUNT 4.32 10^6/uL (3.72-5.28); RED CELL DISTRIBUTION WIDTH 12.9 % (11.5-14.0); SEGMENTED NEUTROPHILS % (AUTO) 65.8 % (42-78); TOTAL CELLS COUNTED % (AUTO) 100 %; WHITE BLOOD COUNT 9.1 10^3/uL (4.0-10.5)
[2020-04-07 10:48] LABS: ALBUMIN 4.3 g/dL (3.5-5.0); ALKALINE PHOSPHATASE 77 U/L (38-126); ANION GAP 5 (5-19); ASPARTATE AMINO TRANSFERASE 16 U/L (14-36); BILIRUBIN,TOTAL 0.2 mg/dL (0.2-1.3); BLOOD UREA NITROGEN 12 mg/dL (7-20); CALCIUM 9.4 mg/dL (8.4-10.2); CARBON DIOXIDE 26 mmol/L (22-30); CHLORIDE 108 mmol/L (98-107); CHOLESTEROL 177.96 mg/dL (0-200); GLUCOSE 88 mg/dL (75-110); POTASSIUM 4.4 mmol/L (3.6-5.0); TOTAL PROTEIN 6.9 g/dL (6.3-8.2); TRIGLYCERIDES 45 mg/dL (<150)
[2020-04-07 10:59] LABS: DIRECT LDL 130 mg/dL (<100)
[2020-04-07 11:05] LABS: FREE T3 2.84 pg/mL (2.77-5.27); FREE T4 (FREE THYROXINE) 0.96 ng/dL (0.78-2.19)
[2020-04-07 11:19] LABS: THYROID STIMULATING HORMONE 1.58 uIU/mL (0.47-4.68)
== END ==
LOC: CCC 09:40
DX: Z00.00 Encounter for general adult medical examination without abnormal findings (principal)
CPT/HCPCS: 36415; 80053; 80061; 83036; 83735; 84439; 84443; 84481; 85025